=== PATIENT | female | born 2005 ===

== ENCOUNTER 2024-06-24 12:30 | Inpatient (IN) | payer SELFPAY ==
[2024-06-24] VITALS (9 sets, daily range): BP systolic 120–145; BP diastolic 57–86; O2SAT 97–98
[~2024-06-24] VITALS: Ht 152.4 cm; Wt 106.2 kg
[2024-06-24] MEDS ORDERED: PRENTAB9 PO (12:57)
[2024-06-24] MEDS ORDERED: GNP250TA9 PO (13:08)
[2024-06-24] MEDS ORDERED: FERR325T3 PO (13:08)
[2024-06-24] MEDS ORDERED: CALC500C16 PO (13:08)
[2024-06-24] MEDS ORDERED: [UNRECOGNIZED DRUG - CODE] PO (13:08)
[2024-06-24] MEDS ORDERED: HOME MED LIST COMPLETE! XX SCH (13:10)
[2024-06-24] MEDS ORDERED: OXYTOCIN DRIP 30 UNITS in IV 1 EA IV PRN (13:25)
[2024-06-24] MEDS ORDERED: TRANEXAMIC ACID INJection 1,000 MG in NS 100 ML IV PRN (13:25)
[2024-06-24] MEDS ORDERED: CARBOPROST TROMETHAMINE 250 MCG/ML AMP IM PRN (13:25)
[2024-06-24] MEDS ORDERED: METHYLERGONOVINE MALEATE 0.2MG/ML 1ML VIAL IM PRN (13:25)
[2024-06-24] MEDS: PENICILLIN G POTASSIUM 5 MU IV 5 MU in DEXTROSE 5% (D5W) MINI-BAG PLU 100 ML IV STA (13:39)
[2024-06-24 13:54] LABS: HEMATOCRIT 36.5 % (36.0-47.0); HEMOGLOBIN 12.4 g/dl (12.0-15.5); MEAN CORPUSCULAR HEMOGLOBIN 29.4 pg (27.0-33.0); MEAN CORPUSCULAR VOLUME 86.5 fl (80.0-96.0); PLATELET COUNT, AUTOMATED 223 10^3/uL (150-450); RED BLOOD COUNT 4.22 10^6/uL (4.00-5.40); WHITE BLOOD COUNT 16.1 10^3/uL (4.0-10.0)
[2024-06-24] MEDS ORDERED: ONDANSETRON 4MG 2ML VIAL IV PRN (14:20)
[2024-06-24] MEDS ORDERED: CALCIUM CARBONATE 500 MG CHEW U/D PO PRN (14:20)
[2024-06-24] MEDS ORDERED: IBUPROFEN 800 MG TAB PO PRN (14:20)
[2024-06-24] MEDS ORDERED: DOCUSATE SODIUM 100MG CAPSULE PO PRN (14:20)
[2024-06-24] MEDS ORDERED: ANUSOL HC CREAM 30GM TOP PRN (14:20)
[2024-06-24] MEDS ORDERED: RHOGAM 300MCG (1500IU) INJ IM SCH (14:20)
[2024-06-24] MEDS: LR 1,000 ML IV SCH ×2 (14:20→14:25)
[2024-06-24] MEDS ORDERED: ACETAMINOPHEN 500 MG TAB PO PRN (14:20)
[2024-06-24] MEDS ORDERED: ACETAMINOPHEN 325 MG TAB PO PRN (14:20)
[2024-06-24] MEDS ORDERED: DIBUCAINE 1% OINTMENT 30GM TOP PRN (14:20)
[2024-06-24] MEDS: OXYTOCIN DRIP 30 UNITS in IV 1 EA IV PRN (14:24)
[2024-06-24] MEDS: LIDOCAINE 1% MDV 20ML VIAL INFIL PRN (14:24)
[2024-06-24 14:48] LABS: HIV 1&2 SCREEN NEGATIVE (NEGATIVE)
[2024-06-24 14:56] LABS: HEPATITIS C VIRUS ABY INDEX < 0.02 INDEX (<0.8)
[2024-06-24] MEDS: IBUPROFEN 600MG TAB PO PRN (15:58)
[2024-06-24] MEDS ORDERED: PEN G POT 3,000,000 UNIT/50 ML 3,000,000 UNIT in IV 1 EA IV SCH (17:40)
[2024-06-25 06:26] VITALS: BP 113/72; O2SAT 97
[2024-06-25] MEDS ORDERED: PRENATAL VITAMINS CHEWABLE TABLET PO SCH (09:00)
[2024-06-25] MEDS: FERROUS SULFATE 325MG TAB PO SCH (09:00)
[2024-06-25] MEDS: CALCIUM CARBONATE 500 MG CHEW U/D PO SCH (09:00)
[2024-06-25] MEDS: PRENATAL VITAMINS CHEWABLE TABLET PO SCH (09:00)
[2024-06-25 18:00] VITALS: BP 128/72; O2SAT 96
[2024-06-26 06:00] VITALS: BP 121/70; O2SAT 98
[2024-06-26] MEDS ORDERED: MEASLES,MUMPS,RUBELLA VACCINE INJ (MMR-II) SC.IMMUN ONE (09:00)
== END 2024-06-26 12:54 | disposition home or self-care (01) | DRG 560 ==
LOC: M LDO 12:30 → M LDI 13:19 → M OBS 16:40
PROVIDERS: ADMIT Obstetrics & Gynecology; ATTEND Obstetrics & Gynecology
PROC: 10E0XZZ Delivery of Products of Conception, External Approach (ICD-10-PCS; principal; 2024-06-24)
PROC: 0KQM0ZZ Repair Perineum Muscle, Open Approach (ICD-10-PCS; 2024-06-24)
DX: O70.1 Second degree perineal laceration during delivery (principal); Z37.0 Single live birth; Z3A.39 39 weeks gestation of pregnancy